=== PATIENT | female | born 1990 | race Caucasian/White ===

== ENCOUNTER 2018-12-06 17:06 | Emergency (ER) | payer OTHER ==
--- NOTE | 2018-12-06 20:18 | ED Physician Documentation ---
PD HPI BACK PAIN - Stated complaint Stated Complaint: BACK PAIN - Chief complaint Chief Complaint: Back Pain - History obtained from History obtained from: Patient, Family (spouse (in ED at bedside)) - History of Present Illness Timing - onset: Enter time (14:30) Timing - details: Abrupt onset Location: Lower Quality: Pain, Spasm Associated symptoms: Numbness (BLE paresthesias). 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 worse with movement Review of Systems Constitutional: denies: Fever : denies: Dysuria, Frequency, Unable to Void, Incontinent Musculoskeletal: reports: Back pain Neurologic: reports: Numbness (paresthesias BLE but not numb per se). denies: Generalized weakness, Focal weakness PD PAST MEDICAL HISTORY - Past Medical History Past Medical History: No - Past Surgical History Past Surgical History: No - Present Medications Home Medications: Ambulatory Orders Medication Instructions Recorded Confirmed Cyclobenzaprine [Flexeril] 10 mg PO TID PRN #20 tablet 12/06/18 Oxycodone HCl/Acetaminophen 1 - 2 each PO Q6H PRN #14 tablet 12/06/18 [Percocet 5-325 mg Tablet] - Allergies Allergies/Adverse Reactions: Allergies Allergy/AdvReac Type Severity Reaction Status Date / Time No Known Drug Allergies Allergy Verified 12/06/18 17:22 - Social History Does the pt smoke?: No Smoking Status: Never smoker Does the pt drink ETOH?: No Does the pt have substance abuse?: No PD ED PE NORMAL - Vitals Vital signs reviewed: Yes - General General: Alert and oriented X 3, No acute distress (NAD at rest, lying on right side on stretcher, but appears to be in painful distress with movement involving lower back), Well developed/nourished - Abdomen Abdomen: Soft, Non tender - Back Back: No CVA TTP, No spinal TTP - Derm Derm: Normal color, Warm and dry, No rash - Neuro Neuro: No motor deficit, No sensory deficit Results - Vitals Vitals: Vital Signs - 24 hr 12/06/18 12/06/18 12/06/18 17:20 21:50 22:44 Temperature 35.7 C L Heart Rate 96 75 Respiratory 14 17 17 Rate Blood Pressure 125/68 98/60 O2 Saturation 98 100 Oxygen O2 Source Room air PD MEDICAL DECISION MAKING - ED course Complexity details: re-evaluated patient, considered differential, d/w patient Departure - Departure Disposition: 01 Home, Self Care Clinical Impression: Lumbar strain Condition: Good Instructions: ED Sprain Strain Lumbar Follow-Up: Hubert Rouse MD [Primary Care Provider] - (2-3 days) Prescriptions: Cyclobenzaprine [Flexeril] 10 mg PO TID PRN #20 tablet PRN Reason: Spasms Oxycodone HCl/Acetaminophen [Percocet 5-325 mg Tablet] 1 - 2 each PO Q6H PRN #14 tablet PRN Reason: pain Discharge Date/Time: 12/06/18 23:03
[2018-12-06] MEDS ORDERED: diazePAM 5 MG TABLET PO STA (20:34)
[2018-12-06] MEDS ORDERED: HYDROmorphone 1 MG/ML CARPUJECT IM STA ×2 (20:34→22:06)
[2018-12-06 21:52] VITALS: BP 98/60
[2018-12-06] MEDS ORDERED: CYCLOBENZAPRINE 10 MG TABLET PO STA (22:06)
[2018-12-06] MEDS ORDERED: DEXAMETHASONE 10 MG/ML VIAL PO STA (22:06)
[2018-12-06] MEDS ORDERED: CHERRY SYRUP 10 ML UDC PO ONE (22:06)
[2018-12-06] MEDS ORDERED: oxyCODONE/ACET 5/325 Prepack 4 PO STA (22:43)
== END 2018-12-06 23:03 | disposition home or self-care (01) ==
LOC: ED 17:06
DX: S39.012A Strain of muscle, fascia and tendon of lower back, initial encounter (principal); X50.9XXA Other and unspecified overexertion or strenuous movements or postures, initial encounter; Y93.89 Activity, other specified
CPT/HCPCS: 96372; 99283; A9270; J1170

== ENCOUNTER 2019-05-22 16:44 | Emergency (ER) | payer OTHER ==
--- NOTE | 2019-05-22 17:09 | ED Physician Documentation ---
PD HPI URI - Stated complaint Stated Complaint: COUGH,N/V - Chief complaint Chief Complaint: Heent - History obtained from History obtained from: Patient - History of Present Illness Timing - onset: How many weeks ago (1) Timing duration: Weeks (1) Timing details: Abrupt onset, Still present Associated symptoms: Fever, Chills, Nasal congestion, Swollen nodes, Dry cough (to the point of almost vomiting and having shortness of breath. No wheezing.). No: Sore throat Contributing factors: COPD / asthma (has MDI that she uses rarely). No: Travel, Immunocompromised Similar symptoms before: Has not had sx before Review of Systems Constitutional: reports: Fever, Chills Nose: reports: Rhinorrhea / runny nose, Congestion Throat: denies: Sore throat Cardiac: denies: Chest pain / pressure Respiratory: reports: Dyspnea, Cough. denies: Wheezing GI: reports: Nausea. denies: Vomiting, Diarrhea Skin: denies: Rash, Lesions Neurologic: denies: Headache PD PAST MEDICAL HISTORY - Past Medical History Past Medical History: Yes Respiratory: Asthma (very mild) Neuro: None Endocrine/Autoimmune: None - Past Surgical History Past Surgical History: No - Present Medications Home Medications: Ambulatory Orders Medication Instructions Recorded Confirmed Cyclobenzaprine [Flexeril] 10 mg PO TID PRN #20 tablet 12/06/18 Oxycodone HCl/Acetaminophen 1 - 2 each PO Q6H PRN #14 tablet 12/06/18 [Percocet 5-325 mg Tablet] Azithromycin [Zithromax] 0 mg PO DAILY #6 tablet 05/22/19 Benzonatate [Tessalon Perle] 100 - 200 mg PO TID PRN #30 capsule 05/22/19 dexAMETHasone [Decadron] 4 mg PO DAILY #5 tablet 05/22/19 guaiFENesin/CODEINE [Robitussin AC] 10 ml PO Q6H PRN #240 ml 05/22/19 - Allergies Allergies/Adverse Reactions: Allergies Allergy/AdvReac Type Severity Reaction Status Date / Time No Known Drug Allergies Allergy Verified 05/22/19 16:47 - Social History Does the pt smoke?: No Smoking Status: Never smoker Does the pt drink ETOH?: No Does the pt have substance abuse?: No - POLST Patient has POLST: No PD ED PE NORMAL - Vitals Vital signs reviewed: Yes - General General: Alert and oriented X 3, Well developed/nourished, Other (appears that she does not feel well. Unlabored breathing. ) - HEENT HEENT: Ears normal, Moist mucous membranes, Pharynx benign - Neck Neck: Supple, no meningeal sign, No adenopathy (but is tender anterior neck. Not tender posteriorly. ) - Cardiac Cardiac: RRR, No murmur - Respiratory Respiratory: Clear bilaterally, Other (persistent coughing at times with hacking cough almost vomiting. ) Results - Vitals Vitals: Vital Signs - 24 hr 05/22/19 05/22/19 16:47 17:56 Temperature 36.8 C Heart Rate 94 80 Respiratory 18 16 Rate Blood Pressure 128/78 120/84 H O2 Saturation 98 99 Oxygen O2 Source Room air PD MEDICAL DECISION MAKING - ED course Complexity details: considered differential (URI symptoms but with cough that is persistent and to the point of almost vomiting. ), d/w patient Departure - Departure Disposition: Home, Self Care Clinical Impression: Upper respiratory infection Qualifiers: URI type: unspecified URI Qualified Code(s): J06.9 - Acute upper respiratory infection, unspecified Condition: Stable Record reviewed to determine appropriate education?: Yes Instructions: ED Upper Resp Infec Abx Tx Follow-Up: Hubert Rouse MD [Primary Care Provider] - Prescriptions: Azithromycin [Zithromax] 0 mg PO DAILY #6 tablet Benzonatate [Tessalon Perle] 100 - 200 mg PO TID PRN #30 capsule PRN Reason: Cough dexAMETHasone [Decadron] 4 mg PO DAILY #5 tablet guaiFENesin/CODEINE [Robitussin AC] 10 ml PO Q6H PRN #240 ml PRN Reason: Cough Comments: Use your albuterol inhaler 2 puffs 4 times a day for the next several days to week. Decadron steroid orally for the next 5 days to reduce bronchial inflammation. This should help reduce coughing. Add benzonatate if needed for cough and cough medicine if needed. Zithromax antibiotic as directed for 5 days. Recheck if not improving well over the next few days. Forms: Activity restrictions Discharge Date/Time: 05/22/19 18:01
[2019-05-22] MEDS ORDERED: BENZONATATE 100 MG CAPSULE PO STA (17:34)
[2019-05-22] MEDS ORDERED: HYDROcod/ACETAM 5/325 MG TABLET PO STA (17:34)
[2019-05-22] MEDS ORDERED: DEXAMETHASONE 10 MG/ML VIAL PO STA (17:34)
[2019-05-22] MEDS ORDERED: CHERRY SYRUP 10 ML UDC PO ONE (17:34)
[2019-05-22 17:57] VITALS: BP 120/84
== END 2019-05-22 18:01 | disposition home or self-care (01) ==
LOC: ED 16:44
DX: J06.9 Acute upper respiratory infection, unspecified (principal)
CPT/HCPCS: 99282; 99284; A9270

== ENCOUNTER 2019-08-01 22:20 | Emergency (ER) | payer OTHER ==
--- NOTE | 2019-08-01 22:31 | ED Physician Documentation ---
PD HPI URI - Stated complaint Stated Complaint: WHEEZING/COUGH - Chief complaint Chief Complaint: Resp - History obtained from History obtained from: Patient - History of Present Illness Timing - onset: How many days ago (2) Timing details: Gradual onset, Waxing and waning Associated symptoms: Productive cough. No: Fever, Sore throat Improves by: Rest Worsened by: Position (lying supine) Recently seen: Not recently seen - Additional information Additional information: c/o 2 days of dyspnea, cough that is mostly nonproductive although she feels chest congestion (cough is occasionally productive). Review of Systems Constitutional: denies: Fever, Chills, Sweats Cardiac: reports: Reviewed and negative Respiratory: reports: Dyspnea, Cough. 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 : None HEENT: None Psych: None Musculoskeletal: None Derm: None - Past Surgical History Past Surgical History: Yes General: Other HEENT: Tonsil/Adenoidectomy, Other - Allergies Allergies/Adverse Reactions: Allergies Allergy/AdvReac Type Severity Reaction Status Date / Time No Known Drug Allergies Allergy Verified 08/01/19 22:27 - Social History Does the pt smoke?: No Smoking Status: Never smoker Does the pt drink ETOH?: No Does the pt have substance abuse?: No - Immunizations Immunizations are current?: Yes - POLST Patient has POLST: No PD ED PE NORMAL - Vitals Vital signs reviewed: Yes - General General: Alert and oriented X 3, No acute distress, Well developed/nourished - HEENT HEENT: Moist mucous membranes - Neck Neck: Supple, no meningeal sign - Cardiac Cardiac: RRR, No murmur - Respiratory Respiratory: No respiratory distress, Clear bilaterally Results - Vitals Vitals: Vital Signs - 24 hr 08/01/19 08/01/19 08/01/19 22:25 23:08 23:31 Temperature 37 C Heart Rate 84 81 80 Respiratory 18 17 18 Rate Blood Pressure 121/93 H 108/79 O2 Saturation 99 99 08/02/19 01:08 Temperature Heart Rate 78 Respiratory 16 Rate Blood Pressure 124/81 H O2 Saturation 99 Oxygen O2 Source Room air - Rads (name of study) chest xray Radiology: Prelim report reviewed, See rad report PD MEDICAL DECISION MAKING - ED course Complexity details: reviewed results, re-evaluated patient, considered differential, d/w patient Departure - Departure Disposition: 01 Home, Self Care Clinical Impression: Upper respiratory infection Condition: Good Instructions: ED Upper Resp Infec No Abx Tx Discharge Date/Time: 08/02/19 01:09
[2019-08-01] MEDS ORDERED: IPRATROPIUM/ALBUTEROL 3 ML NEB INH STA (22:54)
[2019-08-01] MEDS ORDERED: predniSONE 20 MG TABLET PO STA (22:54)
[2019-08-01] MEDS ORDERED: ALBUTEROL 1 PUFF INH STA (23:20)
--- NOTE | 2019-08-01 23:29 | XRAY Report ---
Reason: cough, dyspnea Procedure Date: 08/01/2019 Accession Number: [id number] / [id number] Procedure: XR - Chest 1 View X-Ray CPT Code: 28816 Final Report FULL RESULT: EXAM: CHEST RADIOGRAPHY EXAM DATE: 08/01/2019 10:55 PM. CLINICAL HISTORY: Cough, dyspnea. COMPARISON: None. TECHNIQUE: 1 view. FINDINGS: The mediastinal and cardiac silhouettes are normal. Mild truncal wall thickening is seen with minimal bibasilar airspace opacities. No pleural effusion or pneumothorax is seen. The osseous structures are intact. IMPRESSION: Mild bronchial wall thickening with minimal bibasilar airspace opacities, which may reflect an atypical viral infection. [facility]
[2019-08-02 01:10] VITALS: BP 124/81
== END 2019-08-02 01:09 | disposition home or self-care (01) ==
LOC: ED 22:20
DX: J06.9 Acute upper respiratory infection, unspecified (principal)
CPT/HCPCS: 71045; 81599; 94640; 99284; J7512